=== PATIENT | female | born 2000 | race Two or more races ===

== ENCOUNTER 2025-08-15 03:58 | Observation (INO) | payer OTHER, MEDICAID ==
[~2025-08-15] VITALS: Ht 157.5 cm; Wt 73.9 kg
--- NOTE | 2025-08-15 06:02 | DVHDS2 ---
Discharge Summary Date of Admission Aug 15, 2025 at 03:58 Date of Discharge: Aug 15, 2025 Admitting Diagnosis Thirty-eight weeks rule out labor pelvic pain Labs/Diagnostic Data: one none Brief Hx & Hospital Course: Patient underwent NST reassuring heart tones no significant contractions and/or labor seen. Consults/Reason for consult None Operations or Procedures None Condition at Discharge: Good Final Diagnosis/Problems List 38+ weeks Nahum Zhou contractions no labor reassuring heart tones Discharge Disposition: Home Discharge Instruct/Medications Diet: Regular Activity: Light activity (Pelvic rest labor precautions kick count) Follow Up/Referral: As scheduled Medications: Resume home med Discharge Statement: "Patient was advised to return to the ER or call 911 if any headaches, dizziness, shortness of breath, chest pain, abdominal pain, bleeding, fevers, or worsening of medical condition. Patient was counseled about treatment plan, medications, possible side effects, patientverbalized understanding. All questions were answered to the best of my ability. This discharge took greater then 30 minutes in planning, reviewing docum entation, counseling the patient, and discussing with other team members." ASSESSMENT ASSESSMENT Assessment Visit Coding OBGYN Date of Service: Aug 15, 2025 Billing Provider: ISHMAEL MARTINEZ DO OFFICE ASSOCIATE Common Visit Codes: [id number] INP/OBS CARE(HIGH), 68661-UYS/OBS SAME DATE (LOW), 11194-JTV/OBS SAME DATE (MOD) OFFICE ASSOCIATE Procedure Codes: 57815-31- NON-STRESS TEST ISHMAEL MARTINEZ DO Aug 15, 2025 06:02
== END 2025-08-15 05:29 | disposition home or self-care (01) ==
LOC: LDRP 03:58
PROVIDERS: ADMIT Obstetrics & Gynecology; ATTEND Obstetrics & Gynecology
DX: O99.891 Other specified diseases and conditions complicating pregnancy (principal); R10.2 Pelvic and perineal pain; Z3A.38 38 weeks gestation of pregnancy; Z98.890 Other specified postprocedural states
CPT/HCPCS: 59025; 81002; 94760; G0378

== ENCOUNTER 2025-08-17 17:55 | Observation (INO) | payer OTHER, MEDICAID ==
--- NOTE | 2025-08-17 21:41 | DVHDS2 ---
Physician Discharge Progress N Final Diagnosis: 39w0d IUP R/O labor- Not in labor Secondary Diagnosis: hx: anemia Operations or Procedures: Operations or Procedures BRENDEN Hart is a 24 yo with IUP at 39w0d presenting for rule out labor. Patient states she has been emily since Sunday 08/12. It has been irregular and had moments of being worse than other times. Today, the contractions transitioned from being 10-20 minutes apart to being 3-6 minutes apart. Denies leaking fluid, denies vaginal bleeding, and endorses positive movement EDC: 08/24/25 Review of Systems: Neuro: No complaints Heart: No complaints Lungs: No complaints GI: No complaints : No complaints Skin: No complaints Extremities: No complaints OBJECTIVE VSS FHR: Baseline: 135 Variability: Moderate Accelerations: Present Decelerations: Absent Category: 1 UCs: every 1-6 minutes Neuro: A&O x4. No apparent distress. Affect appropriate Heart: Regular rate and rhythm Lungs: Clear bilaterally GI: Gravid. No tenderness : SVE discussed and performed with consent. Cervix 1/thick/high per RN. Skin: Dry and intact. No rashes or lesions Extremities: Cap refill WNL. ASSESSMENT 24 yo with IUP at 39w0d Not in labor Category 1 Tracing GBS negative PLAN -Patient ambulated around unit for one hour and cervix was rechecked. Unchanged. OK to d/c home. -Extensively discussed early labor and nonpharmacologic/pharmacologic ways to alleviate pain at home. -Discussed labor precautions and kick counts. Answered all patient questions and concerns. Patient verbalizes understanding. Condition on Discharge: Good Disposition: Home Discharge Instructions: Diet: Regular Activity: No Restrictions, As Tolerated Medications: No change. Follow Up Care: Discharge Statement: "Patient was advised to return to the ER or call 911 if any headaches, dizziness, shortness of breath, chest pain, abdominal pain, bleeding, fevers, or worsening of medical condition. Patient was counseled about treatment plan, medications, possible side effects, patientverbalized understanding. All questions were answered to the best of my ability. This discharge took greater then 30 minutes in planning, reviewing documentation, counseling the patient, and discussing with other team members." Visit Coding OBGYN Date of Service: Aug 17, 2025 Billing Provider: ROSALIE RANDALL CNM SUPERVISOR TOWER Common Visit Codes: [id number] INP/OBS CARE (HIGH) SUPERVISOR TOWER Procedure Codes: 91869-62- NON-STRESS TEST ROSALIE RANDALL CNM Aug 17, 2025 21:41
== END 2025-08-17 20:59 | disposition home or self-care (01) ==
LOC: LDRP 17:55
PROVIDERS: ADMIT Obstetrics & Gynecology; ATTEND Obstetrics & Gynecology
DX: O62.9 Abnormality of forces of labor, unspecified (principal); Z3A.39 39 weeks gestation of pregnancy; Z98.890 Other specified postprocedural states
CPT/HCPCS: 59025; 81002; 94760; G0378

== ENCOUNTER 2025-08-19 18:55 | Inpatient (IN) | payer MEDICAID, OTHER ==
[~2025-08-19] VITALS: Ht 157.5 cm; Wt 73.0 kg
[2025-08-19] MEDS ORDERED: LIDOCAINE 2%HCL (LOCAL ANESTH.) INJ 20ML MDV IJ PRN (19:30)
[2025-08-19 19:51] LABS: Hematocrit 30.5 % (36.0-46.0); Hemoglobin 9.8 g/dL (12.2-16.2); Mean Corpuscular Hemoglobin 24.6 pg (28.0-32.0); Mean Corpuscular Volume 76.3 fL (80.0-100.0); Nucleated Red Blood Cells % 0.1 %
[2025-08-19 20:09] LABS: Urine Protein, UAD Negative (Negative)
[2025-08-19 20:09] LABS: INR 0.91 (0.9-1.15); Partial Thromboplastin Time 26.8 SEC (24.5-34.5); Prothrombin Time 9.7 sec (9.3-11.8)
[2025-08-19 20:10] LABS: Alanine Aminotransferase 12 U/L (7-40); Anion Gap 12 (5-15); BUN/Creatinine Ratio 11.4 (10.0-20.0); Blood Urea Nitrogen 10 mg/dL (9-23); Calcium 8.9 mg/dL (8.7-10.4); Carbon Dioxide 20 mmol/L (20-31); Chloride 102 mmol/L (98-107); Glucose 83 mg/dL (74-106); Potassium 4.3 mmol/L (3.5-5.1); Total Protein 7.1 g/dL (5.7-8.2)
[2025-08-19 20:11] LABS: Albumin 4.0 g/dL (3.2-4.8)
[2025-08-19 20:15] LABS: Alkaline Phosphatase 196 U/L (46-116); Bilirubin, Total 0.2 mg/dL (0.2-1.0); Sodium 134 mmol/L (136-145)
[2025-08-19 20:20] LABS: Amphetamine Screen, Urine Neg (NEGATIVE); Barbiturate Scree,Urine Neg (NEGATIVE); Benzodiazephine Screen, Urine Neg (NEGATIVE); Cannabinoid Screen, Urine Neg (NEGATIVE); Cocaine Screen, Urine Neg (NEGATIVE); Opiate Scree,Urine Neg (NEGATIVE); Phencyclidine Screen, Urine Neg (NEGATIVE)
[2025-08-19] MEDS: LACTATED RINGER'S 1,000 ML IV SCH (20:58)
[2025-08-19] MEDS: WITCH HAZEL-GLYCERIN PAD TOP PRN (21:00)
[2025-08-19] MEDS: PHISODERM TOP SOLN 240ML BTL TOP PRN (21:00)
[2025-08-19] MEDS: DERMOPLAST 60ML BOTTLE TOP PRN (21:00)
[2025-08-19] MEDS: NALOXONE HCL 0.4 MG/ML VIAL IV ONE (23:30)
[2025-08-19] MEDS: LACTATED RINGER'S 500 ML IV ONE (23:30)
--- NOTE | 2025-08-19 23:45 | DVHHP2 ---
OB CC & HPI Date Date of Admission: Aug 19, 2025 Patient Identification: : 1 Para: 0 EDC: Aug 24, 2025 EGA: 39w 2d Chief Complaints: Reason for admission: rupture of membranes Admission Nurse Assessment Rev: Yes History of Present Complaints Ms Hart presents to the Place with the report of leakage of fluid from the vagina since 6pm. movement as normal, no vaginal bleeding, BAILEY, vision changes or epigastric pain. Past Medical History Cardiac: No pertinent Hx Pulmonary: No pertinent Hx Central Nervous System: No pertinent Hx GI: No pertinent Hx Hemotology/Oncology: No pertinent Hx Hepatobiliary: No pertinent Hx Psychiatric: No pertinent Hx Musculoskeletal: No pertinent Hx Rheumotologic: No pertinent Hx Infectious Disease: No peritnent Hx ENT: No pertinent Hx Renal/: No pertinent Hx Endocrine: No pertinent Hx Dermatology: No pertinent Hx Past Surgical History: No pertinent Hx OB History OB History Care: Good Care Obstetrical Complications: None Other Concerns: Anemia in Allergies: Coded Allergies: NO KNOWN ALLERGIES (Unverified , 08/15/25) Home Meds No Active Prescriptions or Reported Meds Current Medications Current Medications Medications (Trade) Dose Ordered Sig/Michael Route PRN Reason Start Time Stop Time Status Last Admin Lactated Ringer's 1,000 ml @ 125 mls/hr Q8H IV 08/19/25 19:30 08/19/25 22:40 Witch Julia (Tucks) 1 pad PRN PRN TOP PERINEAL AREA DISCOMFORT 08/19/25 19:30 08/19/25 21:00 Sodium Lauryl Sulfate (Phisoderm) 240 ml PRN PRN TOP PERINEAL AREA DISCOMFORT 08/19/25 19:30 08/19/25 21:00 Benzocaine (Dermoplast) 1 applic PRN PRN TOP PERINEAL AREA DISCOMFORT 08/19/25 19:30 08/19/25 21:00 Lidocaine HCl (Xylocaine) 40 ml ONCE PRN IJ PERINEAL AREA DISCOMFORT 08/19/25 19:30 Family & Social History Family/Social History Blood Type: O+ Rubella: not immune RPR/VDRL: Negative GBS Status: Negative HBsAG: Negative Review of Systems Constitutional: No symptom reported Ears, Nose, & Throat: No symptom reported Eyes: No symptom reported Pulmonary/Respiratory: No symptom reported Cardiovascular: No symptom reported Gastrointestinal: No symptom reported Genitourinary: No symptom reported Musculoskeletal: No symptom reported Skin: No symptom reported Psychiatric: No symptom reported Endocrine: No symptom reported Hemotologic/Lymphatic: No symptom reported OB Admission Exam Physical Exam HEENT: Nasal Mucosa Normal, Eyes non-injected, Oropharynx Normal, Moist Membranes, EOMI Heart: Rhythm Normal Lungs: Clear Abdomen: Gravid (non-tender) Extremities: Normal Reflexes: Normal Cervical Dilatation: 1cm Effacement: 25% Station: -2 Membranes: Ruptured Amniotic Fluid: Clear Heart Rate: 140's Accelerations: Accelerations Present Decelerations: No Decelerations Senior Living Variability: Average (6-25) Contractions on Admission: < 5 Minutes Apart Date/Time Contractions Began: 08/19/25 Frequency of Contractions: every 2-4minutes Duration: 70secs Intensity: Moderate OB Plan Plan Admitting Diagnosis: SROM, Induction of Labor Plan: Induction Induction Methd: Misoprostol protocol Other Plan: Admit to Place for SROM Routine L&D admission orders Misoprostol per protocol EFM per policy & protocol Intrauterine resuscitation PRN Labor analgesia PRN Encourage frequent position change and ambulation to facilitate labor & descent Supportive Care Anticipate Visit Coding OBGYN Date of Service: Aug 19, 2025 Billing Provider: MINNA POWERS CNM CYLINDER LOADER Common Visit Codes: [id number] INP/OBS CARE (HIGH) CYLINDER LOADER Procedure Codes: 04586-09- NON-STRESS TEST MINNA POWERS CNM Aug 19, 2025 23:45
[2025-08-20] VITALS (7 sets, daily range): BP systolic 124–141; BP diastolic 75–90; PULSE 87–102; RESP 16–20; TEMP 98.2–98.3; O2SAT 96–100
[2025-08-20] MEDS: LIDOCAINE HCL 2 %PF INJ 10ML AMP IJ ONE ×2 (01:15→18:11)
[2025-08-20] MEDS: ROPIVACAINE HCL 100 ML ONE ×3 (01:16→14:37)
[2025-08-20] MEDS: LACT. RINGERS/OXYTOCIN 20UNITS 500 ML IV ONE ×2 (07:00→07:30)
[2025-08-20] MEDS ORDERED: TERBUTALINE SULFATE 1 MG/ML 1ML VIAL SC PRN (07:30)
--- NOTE | 2025-08-20 07:40 | DVHPN2 ---
Chief Complaints Patient reports: No new complaints Nursing reports: No new complaints Objective Medications Current Medications Medications (Trade) Dose Ordered Sig/Michael Route PRN Reason Start Time Stop Time Status Last Admin Benzocaine (Dermoplast) 1 applic PRN PRN TOP PERINEAL AREA DISCOMFORT 08/19/25 19:30 08/19/25 21:00 Lactated Ringer's 1,000 ml @ 125 mls/hr Q8H IV 08/19/25 19:30 08/20/25 00:24 Lidocaine HCl (Xylocaine) 40 ml ONCE PRN IJ PERINEAL AREA DISCOMFORT 08/19/25 19:30 Misoprostol (Cytotec) 50 mcg Q4HPRN PRN PO CERVICAL RIPENING 08/20/25 03:15 08/20/25 03:17 Ondansetron HCl (Zofran) 4 mg Q4HPRN PRN IV NAUSEA / VOMITING 08/20/25 07:30 UNV Oxytocin 1,000 ml @ 6 ml/hr Q24H IV 08/20/25 07:30 UNV Sodium Lauryl Sulfate (Phisoderm) 240 ml PRN PRN TOP PERINEAL AREA DISCOMFORT 08/19/25 19:30 08/19/25 21:00 Terbutaline Sulfate (Brethine Inj) 0.25 mg ONCE PRN SC Uterine tachysystole 08/20/25 07:30 UNV Witch Julia (Tucks) 1 pad PRN PRN TOP PERINEAL AREA DISCOMFORT 08/19/25 19:30 08/19/25 21:00 Others VE-3CM/70/-2 Studies Laboratory Tests 08/19/25 19:35 Test 08/19/25 19:35 Range/Units Serum Glucose 83 74-106 mg/dL Ass/Plan Assessment SROM Plan START PITOCIN Visit Coding OBGYN Date of Service: Aug 20, 2025 Billing Provider: SHENG CAM DO KNIFE SHARPENER Common Visit Codes: [id number] OBS CARE (HIGH) KNIFE SHARPENER Procedure Codes: 90077-60- NON-STRESS TEST HSENG CAM DO Aug 20, 2025 07:40
[2025-08-20] MEDS: LACT. RINGERS/OXYTOCIN 20UNITS 1,000 ML IV SCH (08:00)
--- NOTE | 2025-08-20 08:02 | DVHPN2 ---
CNM Labor Progress Note Date and Time Seen Date Seen: Aug 20, 2025 Time Seen: 01:30 Subjective Patient reports: Other (Pain is stronger; requested epidural placement) Objective Vital Signs VSS Monitoring Method Monitoring Method: External Heart Rate Heart Rate Baseline: 135 Heart Rate Variability: Moderate Presence of FHR Accelerations: No Changes in Trends of Patterns: No Are all 5 Components of the FH: Yes Contractions Contractions Frequency: None, Other (2-3min) Duration of Contraction: 60 Contractions Intensity: Moderate Contractions Resting Tone: Relaxed Membranes Membranes: Ruptured Vaginal Exam Vag Exam Deferred: Yes Lab Results Lab Results Current Medications Medications (Trade) Dose Ordered Sig/Michael Start Time Stop Time Status Last Admin Dose Admin Lactated Ringer's 1,000 ml @ 125 mls/hr Q8H 08/19/25 19:30 08/20/25 00:24 125 MLS/HR Ankit Dumont (Tucks) 1 pad PRN PRN 08/19/25 19:30 08/19/25 21:00 1 PAD Sodium Lauryl Sulfate (Phisoderm) 240 ml PRN PRN 08/19/25 19:30 08/19/25 21:00 240 ML Benzocaine (Dermoplast) 1 applic PRN PRN 08/19/25 19:30 08/19/25 21:00 1 APPLIC Lidocaine HCl (Xylocaine) 40 ml ONCE PRN 08/19/25 19:30 Oxytocin 500 ml @ 999 mls/hr Q31M ONCE 08/20/25 07:00 08/20/25 07:30 DC Oxytocin 500 ml @ 125 mls/hr Q4H ONCE 08/20/25 07:30 08/20/25 11:29 Naloxone HCl (Narcan) 0.2 mg PRN ONCE 08/19/25 23:30 08/19/25 23:38 DC Ephedrine Sulfate (ePHEDrine SULFATE) 10 mg PRN ONCE 08/19/25 23:30 08/19/25 23:38 DC Lidocaine HCl (Xylocaine-Pf 2% Injection) 10 ml ONCE ONCE 08/19/25 23:30 08/19/25 23:38 DC 08/20/25 01:15 10 ML Lactated Ringer's 500 ml @ 500 mls/hr Q1H ONCE 08/19/25 23:30 08/20/25 00:29 DC Misoprostol (Cytotec) 50 mcg Q4HPRN PRN 08/20/25 03:15 08/20/25 03:17 50 MCG Oxytocin 1,000 ml @ 6 ml/hr Q24H 08/20/25 07:30 08/20/25 08:00 6 ML/HR Terbutaline Sulfate (Brethine Inj) 0.25 mg ONCE PRN 08/20/25 07:30 Ondansetron HCl (Zofran) 4 mg Q4HPRN PRN 08/20/25 07:30 Laboratory Tests Test 08/19/25 19:35 08/19/25 19:21 Range/Units White Blood Count 6.5 4.4-10.8 10^3/uL Red Blood Count 4.00 4.0-5.20 10^6/uL Hemoglobin 9.8 L 12.2-16.2 g/dL Hematocrit 30.5 L 36.0-46.0 % Mean Corpuscular Volume 76.3 L 80.0-100.0 fL Mean Corpuscular Hemoglobin 24.6 L 28.0-32.0 pg Mean Corpuscular Hemoglobin Concent 32.2 32.0-36.0 g/dL Red Cell Distribution Width 19.8 H 11.8-14.3 % Platelet Count 337 140-450 10^3/uL Mean Platelet Volume 8.1 6.9-10.8 fL Neutrophils (%) (Auto) 64.5 37.0-80.0 % Lymphocytes (%) (Auto) 26.2 10.0-50.0 % Monocytes (%) (Auto) 7.7 0.0-12.0 % Eosinophils (%) (Auto) 1.0 0.0-7.0 % Basophils (%) (Auto) 0.6 0.0-2.0 % Neutrophils # (Auto) 4.2 1.6-8.6 10 ^3/uL Lymphocytes # (Auto) 1.7 0.4-5.4 10 ^3/uL Monocytes # (Auto) 0.5 0-1.3 10 ^3/uL Eosinophils # (Auto) 0.1 0-0.8 10 ^3/uL Basophils # (Auto) 0 0-0.2 10 ^3/uL Nucleated Red Blood Cells 0.1 % Prothrombin Time 9.7 9.3-11.8 sec Prothrombin Time INR 0.91 0.9-1.15 Activated Partial Thromboplast Time 26.8 24.5-34.5 SEC Sodium Level 134 L 136-145 mmol/L Potassium Level 4.3 3.5-5.1 mmol/L Chloride Level 102 98-107 mmol/L Carbon Dioxide Level 20 20-31 mmol/L Anion Gap 12 5-15 Blood Urea Nitrogen 10 9-23 mg/dL Creatinine 0.88 0.550-1.02 mg/dL Glomerular Filtration Rate Calc 93 >90 mL/min BUN/Creatinine Ratio 11.4 10.0-20.0 Serum Glucose 83 74-106 mg/dL Calcium Level 8.9 8.7-10.4 mg/dL Total Bilirubin 0.2 0.2-1.0 mg/dL Aspartate Amino Transferase (AST) 27 13-40 U/L Alanine Aminotransferase (ALT) 12 7-40 U/L Alkaline Phosphatase 196 H 46-116 U/L Total Protein 7.1 5.7-8.2 g/dL Albumin 4.0 3.2-4.8 g/dL Treponema pallidum Antibody Non-reactive Negative Hepatitis C Antibody Negative Negative Urine Color Colorless Yellow Urine Clarity Clear Clear Urine pH 6.0 5.0-9.0 Urine Specific [place] 1.006 1.001-1.035 Urine Protein Negative Negative Urine Ketones Negative Negative Urine Blood Negative Negative /uL Urine Nitrite Negative Negative Urine Bilirubin Negative Negative Urine Urobilinogen Normal Negative mg/dL Urine Leukocyte Esterase 2+ Negative /uL Urine RBC 1 0 - 4 /hpf Urine Microscopic WBC 13 H 0-5 /HPF Urine Squamous Epithelial Cells Few <5 /hpf Urine Bacteria None seen None Seen /hpf Urine Glucose Normal Normal mg/dL Urine Opiates Screen Neg NEGATIVE Urine Fentanyl Screen Neg NEGATIVE Urine Barbiturates Screen Neg NEGATIVE Urine Phencyclidine Screen Neg NEGATIVE Urine Amphetamines Screen Neg NEGATIVE Urine Benzodiazepines Screen Neg NEGATIVE Urine Cocaine Screen Neg NEGATIVE Urine Cannabinoids Screen Neg NEGATIVE Assessment Assessment <> IUP at 39w 3d <> SROM Plan Plan Continue current plan Pt getting epidural Suppotive care Frequent position change to facilitate labor progress Plan discussed with: Patient Visit Coding OBGYN Date of Service: Aug 20, 2025 Billing Provider: MINNA POWERS CNM MACHINE ADJUSTER Common Visit Codes: [id number] INP/OBS CARE(HIGH) MACHINE ADJUSTER Procedure Codes: 35972-38- NON-STRESS TEST MINNA POWERS CNM Aug 20, 2025 08:02
--- NOTE | 2025-08-20 12:13 | DVHPN2 ---
Chief Complaints Patient reports: No new complaints, Other (Pain is stronger; requested epidural placement) Nursing reports: No new complaints Objective Medications Current Medications Medications (Trade) Dose Ordered Sig/Michael Route PRN Reason Start Time Stop Time Status Last Admin Benzocaine (Dermoplast) 1 applic PRN PRN TOP PERINEAL AREA DISCOMFORT 08/19/25 19:30 08/19/25 21:00 Cefazolin Sodium 50 ml @ 100 mls/hr Q8HR IV 08/20/25 20:15 UNV Lactated Ringer's 1,000 ml @ 125 mls/hr Q8H IV 08/19/25 19:30 08/20/25 00:24 Lidocaine HCl (Xylocaine) 40 ml ONCE PRN IJ PERINEAL AREA DISCOMFORT 08/19/25 19:30 Misoprostol (Cytotec) 50 mcg Q4HPRN PRN PO CERVICAL RIPENING 08/20/25 03:15 08/20/25 03:17 Ondansetron HCl (Zofran) 4 mg Q4HPRN PRN IV NAUSEA / VOMITING 08/20/25 07:30 Oxytocin 1,000 ml @ 6 ml/hr Q24H IV 08/20/25 07:30 08/20/25 08:00 Sodium Lauryl Sulfate (Phisoderm) 240 ml PRN PRN TOP PERINEAL AREA DISCOMFORT 08/19/25 19:30 08/19/25 21:00 Terbutaline Sulfate (Brethine Inj) 0.25 mg ONCE PRN SC Uterine tachysystole 08/20/25 07:30 Witch Julia (Tucks) 1 pad PRN PRN TOP PERINEAL AREA DISCOMFORT 08/19/25 19:30 08/19/25 21:00 Others VE-6/90/-12 Studies Laboratory Tests 08/19/25 19:35 Test 08/19/25 19:35 Range/Units Serum Glucose 83 74-106 mg/dL Ass/Plan Assessment SROM Plan CONT WITH PITOCIN Visit Coding OBGYN Date of Service: Aug 20, 2025 Billing Provider: SHENG CAM DO AFRICAN STUDIES PROFESSOR Common Visit Codes: [id number] OBS CARE (HIGH), 58913-AZYALSZ INP/OBS CARE (HIGH), [id number] INP/OBS CARE(MOD) AFRICAN STUDIES PROFESSOR Procedure Codes: 84172-48- NON-STRESS TEST SHENG CAM DO Aug 20, 2025 12:13
[2025-08-20] MEDS: ceFAZolin 2 GM/D5W50ml 50 ML IV ONE (12:44)
[2025-08-20] MEDS: ONDANSETRON HCL 4 MG/2 ML VIAL IV PRN (13:26)
[2025-08-20] MEDS ORDERED: fentaNYL CITRATE 100 MCG/2 ML VL ONE (18:24)
[2025-08-20] MEDS ORDERED: MORPHINE SULF PF 5 MG/10 ML VIAL ONE (18:24)
[2025-08-20] MEDS ORDERED: MIDAZOLAM HCL 2MG/2ML 2ml VIAL (1mg/ml) ONE (18:25)
[2025-08-20] MEDS ORDERED: IBUP-1456 PO (18:43)
[2025-08-20] MEDS ORDERED: DOCU-94 PO (18:43)
[2025-08-20] MEDS: ceFAZolin 1GM/50ML 50 ML IV ONE (18:43)
[2025-08-20] MEDS ORDERED: HYDR-4072 PO (18:43)
[2025-08-20] MEDS: GUM (CHEWING) 1 GUM CHEW CHEW ONE (18:45)
[2025-08-20] MEDS ORDERED: ONDANSETRON HCL 4 MG/2 ML VIAL IV PRN ×2 (18:45→19:30)
[2025-08-20] MEDS ORDERED: LACT. RINGERS/OXYTOCIN 20UNITS 1,000 ML IV ONE (18:45)
[2025-08-20] MEDS: CARBOPROST TROMETHAMINE 250 MCG/1ML VIAL IM ONE ×2 (19:00→19:13)
--- NOTE | 2025-08-20 19:20 | DVHOP2 ---
Operative Report DATE OF OPERATION: 08/20/25 PREOPERATIVE DIAGNOSES: Term Pregnancywith srom,non reassuring fht,fetus at risk,,op POSTOPERATIVE DIAGNOSES: same,meconium,uterine atony SURGEON: Jennifer Johnson D.O./meir ANESTHESIOLOGIST: shanna TYPE OF ANESTHESIA : spinal CONSENT: The patient was informed of the risks and benefits of the procedure. The patient was informed of the risks and benefits of the procedure. These include but are not limited to , complications of anesthesia, postoperative infection, incomplete relief of symptoms, recurrence of symptoms, damage to blood vessels, nerves and tendons, deep venous thrombosis, pulmonary embolism and possible need for repeat surgery in the future. FINDINGS: Baby [b] with Apgars of [8] and [9]. Grossly normal appearing tubes and ovaries.meconium,op PROCEDURES: Primary low transverse section. PROCEDURE IN DETAIL: The patient was taken to the operating room. She already had an epidural in place. She was then placed in supine position with a leftward tilt. A Pfannenstiel skin incision was made 2 cm above the symphysis pubis. This incision was carried to the underlying layer of fascia. The fascia was nicked in the midline. The incision was extended laterally. The superior aspect of the fascial incision was grasped and elevated. The same procedure was done to the inferior aspect of the fascial incision. The rectus muscles were then in the midline. Peritoneum was identified and entered. Peritoneal incision was extended superiorly and inferiorly with good visualization of the bladder. Bladder blade was inserted. Vesicouterine peritoneum was identified and entered. Lower uterine segment was incised in a transverse fashion. The infant was delivered from vertex presentation.there was meconium fld and op presentation. was baby [b] with Apgars [8] and [9]. Placenta was then removed manually. Uterus was exteriorized and cleared of all clots and debris. uterine atony was encountered which was managed with hemobatex2. The incision was repaired using 0 Vicryl in a double-layered fashion. No bleeding was noted. Uterus was then returned to the abdomen. The gutters were cleared off all clots and debris. Peritoneum was closed using 0 Vicryl, fascia was closed using 0 Maxon, and skin was closed using jaswant. The patient tolerated the procedure well. She was taken to the recovery room in stable condition. ESTIMATED BLOOD LOSS: Estimated blood loss was noted to be 800 mL. Visit Coding OBGYN Date of Service: Aug 20, 2025 Billing Provider: JENNIFER JOHNSON DO GRIDDLE ATTENDANT Common Visit Codes: 23040-[id number] INP/OBS CARE (HIGH) GRIDDLE ATTENDANT Procedure Codes: [id number] DELIVERY ONLY JENNIFER JOHNSON DO Aug 20, 2025 19:20
--- NOTE | 2025-08-20 19:21 | DVHHP ---
ADMIT DATE: 08/20/2025 CHIEF COMPLAINT: Non-reassuring heart tracing, intolerance to Pitocin and labor. HISTORY OF PRESENT ILLNESS: The patient is a 24-year-old 1 para 0 with an EDC of 08/24/2025, estimated gestational age of 39 weeks, admitted for spontaneous rupture of membranes. The patient received 2 Cytotec followed by Pitocin, she got to 8 cm, but started having spontaneous decelerations and deep variables. Pitocin was turned up. The patient was not able to continue on Pitocin. Subsequently, the patient is being taken for primary secondary to nonreassuring hear tracing. PAST MEDICAL HISTORY: None. PAST SURGICAL HISTORY: None. SOCIAL HISTORY: None. FAMILY HISTORY: None. OBSTETRIC AND GYNECOLOGIC HISTORY: Primigravid. ALLERGIES: No known drug allergies. REVIEW OF SYSTEMS: Consistent with HPI. PHYSICAL EXAMINATION: VITAL SIGNS: Stable, afebrile. HEENT: Within normal limits. CARDIOVASCULAR: Regular rate and rhythm. LUNGS: Clear to auscultation. BREASTS: Symmetrical. No masses. ABDOMEN: Gravid. Positive heart. Estimated weight 8 pounds. PELVIC: 8 cm, 0 station, 90%. EXTREMITIES: No clubbing, cyanosis, or edema. IMPRESSION: * Intrauterine at 39 weeks with spontaneous rupture of membranes. * Nonreassuring heart tracing, fetus at risk. * Prolonged rupture of membranes. PLAN: Primary low transverse section. Informed consent was obtained. Risks and complications of the surgery, including infection, bleeding, hematoma formation, injury to bowel or bladder or surrounding organ, possibility of DVT, pulmonary embolism, and risks of anesthesia were discussed with the patient. Options reviewed. All questions were answered. The patient fully understands. She wishes to proceed with planned procedure. DO RAH Pacheco TID: [id number] RECEIPT: [id number]
--- NOTE | 2025-08-20 19:22 | POSTOP ---
Post-Operative Note Post-Operative Note Preop Diagnosis 39wks with srom,fetua ta risk,op Postop Diagnosis: same,uterine atony,meconium Operation performed pltcs Specimen baby boy,apgars 8-9,op,meconium Anesthesia: Regional Anesthesiologist: shanna Blood Loss(fluid mgmt) 800ml Surgeon Sheng Johnson [place] meir Implant na Complications & Mgmt none Date 08/20/25 Time 19:20 Visit Coding OBGYN Date of Service: Aug 20, 2025 Billing Provider: SHENG JOHNSON DO FUEL CELL ASSEMBLER Common Visit Codes: [id number] INP/OBS CARE (HIGH) FUEL CELL ASSEMBLER Procedure Codes: [id number] DELIVERY ONLY SHENG JOHNSON DO Aug 20, 2025 19:22
[2025-08-20] MEDS: DIPHENOXYLATE W/ATROPINE 2.5 MG TAB ONE (19:28)
[2025-08-20] MEDS ORDERED: MORPHINE SULFATE 4 MG/ML SYR/VIAL IV PRN (19:30)
[2025-08-20] MEDS ORDERED: hydrALAZINE HCL 20 MG/ML VL IV PRN (19:30)
[2025-08-20] MEDS ORDERED: diphenhydrAMINE HCL 50 MG/1 ML VL IV PRN (19:30)
[2025-08-20] MEDS ORDERED: HYDROmorphone HCL 2 MG/ML VL/or syr IV PRN ×2 (19:30)
[2025-08-20] MEDS ORDERED: MIDAZOLAM HCL 2MG/2ML 2ml VIAL (1mg/ml) IV PRN (19:30)
[2025-08-20] MEDS ORDERED: NALOXONE HCL 0.4 MG/ML VIAL IV PRN (19:30)
[2025-08-20] MEDS: LABETALOL HCL 5 MG/ML ML 20ML VIAL IV ONE ×3 (19:42→20:18)
[2025-08-20] MEDS ORDERED: LABETALOL HCL 5 MG/ML ML 20ML VIAL IV ONE (19:52)
[2025-08-20] MEDS: DIPHENOXYLATE W/ATROPINE 2.5 MG TAB PO ONE (19:58)
[2025-08-20] MEDS ORDERED: ceFAZolin 1GM/50ML 50 ML IV SCH (20:15)
[2025-08-20 23:23] LABS: Hematocrit 27.8 % (36.0-46.0); Hemoglobin 9.1 g/dL (12.2-16.2); Mean Corpuscular Hemoglobin 25.7 pg (28.0-32.0); Mean Corpuscular Volume 78.3 fL (80.0-100.0); Nucleated Red Blood Cells % 0.0 %
[2025-08-21] VITALS (21 sets, daily range): BP systolic 103–141; BP diastolic 62–84; PULSE 70–108; RESP 16–20; TEMP 98–98.7; O2SAT 95–100
[2025-08-21] MEDS: ACETAMINOPHEN IV 1000 MG/100ML (10MG/ML) IV PRN (02:01)
[2025-08-21] MEDS: ceFAZolin 1GM/50ML 50 ML IV SCH (03:46)
--- NOTE | 2025-08-21 06:31 | DVHPN2 ---
Progress Note Date Seen: Aug 21, 2025 Subjective S: Lochia minimal. Clear liquid diet well tolerated. Yet to ambulate, Saba cath draining clear yellow urine to bag by gravity. Pain relieved with IV analgesics. Passing flatus but no BM yet. & formula feeding w/o problem vital signs Vital Sign Date Time Temp Pulse Resp B/P (MAP) Pulse Ox O2 Delivery O2 Flow Rate FiO2 08/21/25 05:00 18 100 08/21/25 05:00 70 109/62 (78) 08/21/25 03:00 98.3 98.3 08/20/25 21:00 Room Air 08/20/25 19:48 7.0 100 Total Intake and Output 08/20/25 08/20/25 08/21/25 15:00 23:00 07:00 Output Total 300 ml 700 ml Balance -300 ml -700 ml medications Current Medications Medications Dose Ordered Sig/Michael Route Start Time Stop Time Status Last Admin Dose Admin Lactated Ringer's 1,000 ml @ 125 mls/hr Q8H IV 08/19/25 19:30 08/20/25 20:53 125 MLS/HR Ondansetron HCl 4 mg Q4HP PRN IV 08/20/25 18:45 UNV Cefazolin Sodium 50 ml @ 100 mls/hr Q8H IV 08/21/25 03:00 08/21/25 19:29 08/21/25 03:46 100 MLS/HR Diphenhydramine HCl 25 mg Q4HP PRN IV 08/20/25 19:30 Ondansetron HCl 4 mg Q4HP PRN IV 08/20/25 19:30 Acetaminophen 1,000 mg Q8HPRN PRN IV 08/20/25 21:45 08/21/25 14:01 08/21/25 02:01 1,000 MG laboratory and microbiology Laboratory Tests 08/20/25 23:00 08/19/25 19:35 Test 08/19/25 19:35 Range/Units Serum Glucose 83 74-106 mg/dL Objective A&O x3 NAD. Afebrile, VSS Chest: heart and lung sounds normal. Breasts: Nipples intact w/o cracks or soreness Abdomen: normal BS, soft, non-tender, no rebound or guarding, fundus firm @ U Lower abdominal Incision site with Sylke dressing on, same clean, dry and intact. No edema, erythema or induration Extremities: no edema or tenderness Problems(with codes): (1) S/P primary low transverse Assessment/Plan 24yo now Post operative & ppd #1 s/p Primary Section for arrest of descent resting well at this time. Anemia Blood Type: O Rh: Positive Breast feeding Rubella non immune P: Encourage use of incentive spirometer D/C Saba catheter Assist and encourage ambulation Pain control: IV analgesia to switch to oral when tolerating regular diet Diet: Advance as tolerated MMR prior to discharge Plan discussed with: Patient, Spouse Visit Coding OBGYN Date of Service: Aug 21, 2025 Billing Provider: MINNA POWERS CNM JAILER/TRAINING OFFICER Common Visit Codes: [id number] INP/OBS CARE(HIGH) MINNA POWERS CNM Aug 21, 2025 06:31
[2025-08-21 07:12] LABS: Hemoglobin 8.6 g/dL (12.2-16.2); Mean Corpuscular Hemoglobin 25.7 pg (28.0-32.0); Nucleated Red Blood Cells % 0.0 %
[2025-08-21 07:16] LABS: Hematocrit 26.0 % (36.0-46.0); Mean Corpuscular Volume 78.1 fL (80.0-100.0)
[2025-08-21] MEDS: LABETALOL HCL 20 MG/4 ML VL IV ONE (10:00)
[2025-08-21] MEDS ORDERED: HYDROcodone-ACET 5/325MG TAB PO PRN (16:15)
[2025-08-21] MEDS: HYDROcodone-ACET 5/325MG TAB PO PRN (18:41)
[2025-08-21] MEDS: SIMETHICONE 80 MG CHEWABLE TABLET PO SCH (18:41)
[2025-08-21] MEDS: DOCUSATE SOD 100 MG CAP PO SCH (22:10)
[2025-08-21] MEDS: IBUPROFEN 800 MG TAB PO PRN (22:11)
[2025-08-22 03:05] VITALS: BP 133/69; PULSE 91; RESP 17; TEMP 98.3; O2SAT 98
--- NOTE | 2025-08-22 06:41 | DVHDS2 ---
Discharge Summary Discharge Summary Date of Admission: Aug 21, 2025 Date of Discharge: Aug 22, 2025 Discharge Diagnosis: Primary Section Stable Condition Procedures Lower Cervical Transverse Section Delivery of viable male and placenta Brief History: PP Note C- Section 24 y/o now (1,0,0,1) Post operative & ppd #2 s/p Primary Section doing well. Primary C/S for Intolerance to labor Delivery of viable infant male 08/20/2025 @ 1853 Subjective Lochia minimal. Advancing /Clear liquid / soft / Regular diet well tolerated. Ambulating and voiding well w/o feeling dizzy or lightheaded. Pain relieved with oral / IV / analgesics. Passing flatus but no BM yet. w/o problem Desires / Requests to be discharged today Objective Afebrile, VSS Vital Signs Date Time Temp Pulse Resp B/P (MAP) Pulse Ox O2 Delivery O2 Flow Rate FiO2 08/22/25 03:05 98.3 91 17 133/69 (90) 98 98.3 08/21/25 19:00 Room Air 08/21/25 07:00 0.0 08/20/25 19:48 100 Chest: heart and lung sounds normal. Breasts: Nipples intact w/o cracks or soreness Abdomen: normal BS, soft, non-tender, no rebound or guarding, fundus firm @ -1 Umbilicus Lower abdominal Incision site with Sylke dressing scant dry bleeding noted, dry and intact. Extremities: no edema or tenderness Lochia Rubra - minimal Labs Laboratory Tests Test 08/21/25 06:26 08/19/25 19:35 08/19/25 19:21 Range/Units White Blood Count 9.6 4.4-10.8 10^3/uL Red Blood Count 3.33 L 4.0-5.20 10^6/uL Hemoglobin 8.6 L 12.2-16.2 g/dL Hematocrit 26.0 L 36.0-46.0 % Mean Corpuscular Volume 78.1 L 80.0-100.0 fL Mean Corpuscular Hemoglobin 25.7 L 28.0-32.0 pg Mean Corpuscular Hemoglobin Concent 32.9 32.0-36.0 g/dL Red Cell Distribution Width 19.9 H 11.8-14.3 % Platelet Count 242 140-450 10^3/uL Mean Platelet Volume 8.3 6.9-10.8 fL Neutrophils (%) (Auto) 75.0 37.0-80.0 % Lymphocytes (%) (Auto) 15.9 10.0-50.0 % Monocytes (%) (Auto) 8.6 0.0-12.0 % Eosinophils (%) (Auto) 0.3 0.0-7.0 % Basophils (%) (Auto) 0.2 0.0-2.0 % Neutrophils # (Auto) 7.2 1.6-8.6 10 ^3/uL Lymphocytes # (Auto) 1.5 0.4-5.4 10 ^3/uL Monocytes # (Auto) 0.8 0-1.3 10 ^3/uL Eosinophils # (Auto) 0 0-0.8 10 ^3/uL Basophils # (Auto) 0 0-0.2 10 ^3/uL Nucleated Red Blood Cells 0.0 % Prothrombin Time 9.7 9.3-11.8 sec Prothrombin Time INR 0.91 0.9-1.15 Activated Partial Thromboplast Time 26.8 24.5-34.5 SEC Sodium Level 134 L 136-145 mmol/L Potassium Level 4.3 3.5-5.1 mmol/L Chloride Level 102 98-107 mmol/L Carbon Dioxide Level 20 20-31 mmol/L Anion Gap 12 5-15 Blood Urea Nitrogen 10 9-23 mg/dL Creatinine 0.88 0.550-1.02 mg/dL Glomerular Filtration Rate Calc 93 >90 mL/min BUN/Creatinine Ratio 11.4 10.0-20.0 Serum Glucose 83 74-106 mg/dL Calcium Level 8.9 8.7-10.4 mg/dL Total Bilirubin 0.2 0.2-1.0 mg/dL Aspartate Amino Transferase (AST) 27 13-40 U/L Alanine Aminotransferase (ALT) 12 7-40 U/L Alkaline Phosphatase 196 H 46-116 U/L Total Protein 7.1 5.7-8.2 g/dL Albumin 4.0 3.2-4.8 g/dL Treponema pallidum Antibody Non-reactive Negative Hepatitis C Antibody Negative Negative Urine Color Colorless Yellow Urine Clarity Clear Clear Urine pH 6.0 5.0-9.0 Urine Specific [place] 1.006 1.001-1.035 Urine Protein Negative Negative Urine Ketones Negative Negative Urine Blood Negative Negative /uL Urine Nitrite Negative Negative Urine Bilirubin Negative Negative Urine Urobilinogen Normal Negative mg/dL Urine Leukocyte Esterase 2+ Negative /uL Urine RBC 1 0 - 4 /hpf Urine Microscopic WBC 13 H 0-5 /HPF Urine Squamous Epithelial Cells Few <5 /hpf Urine Bacteria None seen None Seen /hpf Urine Glucose Normal Normal mg/dL Urine Opiates Screen Neg NEGATIVE Urine Fentanyl Screen Neg NEGATIVE Urine Barbiturates Screen Neg NEGATIVE Urine Phencyclidine Screen Neg NEGATIVE Urine Amphetamines Screen Neg NEGATIVE Urine Benzodiazepines Screen Neg NEGATIVE Urine Cocaine Screen Neg NEGATIVE Urine Cannabinoids Screen Neg NEGATIVE Assessment/Plan: Status Post Primary C/S PPD #2 Desires for D/C later today cleared by social insurance adviser Blood Type: O Rh: Positive Antibody Negative Breast feeding Rubella Immune GBS: Negatgive Pain control with oral medications Bowel regimen: Increase fluid intake and fiber in diet, Laxative PRN PP BCM Plan: Unknown Discharge plan: May discharge home later today if condition remains stable Discharge Disposition: Home Discharge Instructions FOR D/C SUMMARY Diet: Routine regular diet rich in fiber, protein, iron and vitamin C with adequate fluid intake. Activity: Unrestricted. Advance as tolerated. Balance activities with rest periods. No heavy lifting, pushing or straining. Pelvic rest x 6weeks Follow up with OB Provider in 1 week Medications: [place] 5/325 2 tabs Every 4-6H PRN Ibuprofen 800mg every 6 hours as needed for pain. Continue Vitamin and iron Instructions: Post operative and self care instructions given. self care instructions given. emergency signs and symptoms including but not limited to pre- eclampsia precautions and signs of infection, PPH & of PPD reviewed with patient. Follow up with OB Provider in 1 week Medications Current Medications Medications Dose Ordered Sig/Michael Route Start Time Stop Time Status Last Admin Dose Admin Lactated Ringer's 1,000 ml @ 125 mls/hr Q8H IV 08/19/25 19:30 08/20/25 20:53 Ondansetron HCl 4 mg Q4HP PRN IV 08/20/25 18:45 UNV Diphenhydramine HCl 25 mg Q4HP PRN IV 08/20/25 19:30 Ondansetron HCl 4 mg Q4HP PRN IV 08/20/25 19:30 Docusate Sodium 100 mg Q12HR PO 08/21/25 22:00 08/21/25 22:10 Dimethicone 80 mg QID PO 08/21/25 18:00 08/22/25 05:10 Ibuprofen 800 mg Q8HP PRN PO 08/21/25 16:15 08/21/25 22:11 Acetaminophen/ Hydrocodone Bitart 1 tab Q4HPRN PRN PO 08/21/25 16:15 Acetaminophen/ Hydrocodone Bitart 2 tab Q4HPRN PRN PO 08/21/25 16:15 08/22/25 05:10 Follow up Follow up with OB Provider in 1 week for incision check Discharge Care Plan Problem Pain, Risk for injury/Safety, Impaired skin integrity, Risk for infection Goals Pain controlled, Reduction of pain Know Disease Process, Know Procedures, Know Self care, Know Condition, Know D/C needs, Know Treatments, Know F/U care Remain free of infection, No drainage from wounds Instructions Take Rx medications, Notify MD of any issues, Keep list of meds w/ you, F/U w/ PCP, Educate on timing of meds See pt D/C handouts Proper handwashing, Avoid infectious people, S/S to look for Visit Coding OBGYN Date of Service: Aug 22, 2025 Billing Provider: RANDY JONES CNM SWIMMER Common Visit Codes: [id number] [facility] CARE [place]MOD[place] [facility] [place]
[2025-08-22 09:00] VITALS: BP 152/86; PULSE 91; RESP 17; TEMP 98; O2SAT 98
[2025-08-22 10:49] VITALS: BP 146/81; PULSE 92; RESP 16; O2SAT 98
[2025-08-22 15:30] VITALS: BP 137/74; PULSE 87; RESP 17; TEMP 98.3; O2SAT 98
[2025-08-22 18:08] VITALS: BP 137/74
== END 2025-08-22 17:41 | disposition home or self-care (01) | DRG 540 ==
LOC: LDRP 18:55 → OBSVTOIN 19:10 → LDRP 19:12
PROVIDERS: ADMIT Obstetrics & Gynecology; ATTEND Obstetrics & Gynecology
PROC: 10D00Z1 Extraction of Products of Conception, Low, Open Approach (ICD-10-PCS; principal; 2025-08-20 18:36)
DX: O77.0 Labor and delivery complicated by meconium in amniotic fluid (principal); R71.0 Precipitous drop in hematocrit; Z37.0 Single live birth; O62.2 Other uterine inertia; O76 Abnormality in fetal heart rate and rhythm complicating labor and delivery; Z3A.39 39 weeks gestation of pregnancy; O99.02 Anemia complicating childbirth
CPT/HCPCS: 36415; 59025; 62282; 80053; 80307; 81001; 81002; 85025; 85610; 85730; 86780; 86803; 86850; 86900; 86901; 94760; 94762; 96360; 96361; G0378; J0131; J2250; J2405; J2590